=== PATIENT | male | born 1965 | race Caucasian/White ===

== ENCOUNTER 2020-10-18 21:52 | Inpatient (IN) | payer MEDICAID ==
[~2020-10-18] VITALS: Ht 177.8 cm; Wt 89.8 kg
[~2020-10-18 21:52] MED LIST: ALBU6.7H9 INH; APIX5TAB PO; AZIT500T8 MT; DEX2 MT; DIVA500T3 PO; FLOV44 INH; FLUT1DIS3 INH; LIP40 MT; METF-873 PO; METO-385 PO; SYN175 PO
[2020-10-18] MEDS ORDERED: ASPIRIN 81MG TABLET PO ONE (22:30)
[2020-10-18 23:13] LABS: BASOPHILS % 0.9 % (0.0-2.0); EOSINOPHILS % 1.2 % (0.0-5.0); HEMATOCRIT. 42.9 % (42.0-52.0); HEMOGLOBIN. 14.7 g/dL (14.0-18.0); LYMPHOCYTES % 24.6 % (20.0-50.0); MEAN CORPUSCULAR HEMOGLOBIN 29.9 pg (28.0-32.0); MEAN CORPUSCULAR VOLUME 87.5 fL (80.0-94.0); MEAN PLATELET VOLUME 8.9 fl (7.4-10.4); MONOCYTES % 12.4 % (2.0-8.0); NEUTROPHILS % 60.9 % (40.0-76.0); PLATELET 226 x1000/uL (130-400); RED BLOOD CELL COUNT 4.91 mill/uL (4.7-6.1); RED CELL DISTRIBUTION WIDTH 14.6 % (11.6-14.6)
[2020-10-18 23:19] LABS: CHLORIDE 103 mEq/L (98-107)
[2020-10-18] MEDS: NITROGLYCERIN 0.4MG TABLET SL SL PRN ×3 (23:20→23:34)
[2020-10-18 23:24] LABS: D-DIMER 0.3 mg/L FEU (<0.50); PARTIAL THROMBOPLASTIN TIME 27.7 sec (23.4-31.0); PROTHROMBIN TIME 10.3 sec (9.6-11.0)
[2020-10-18] MEDS ORDERED: CEFTRIAXONE 1 G PREMIX 50 ML IV ONE (23:30)
[2020-10-18] MEDS ORDERED: AZITHROMYCIN 500 MG in DEXT 5% WATER 250 ML IV ONE (23:30)
[2020-10-18] MEDS ORDERED: FUROSEMIDE 40MG/4ML VIAL IVP ONE (23:30)
[2020-10-18] MEDS ORDERED: ONDANSETRON HCL 4MG/2ML INJ IV STA (23:43)
[2020-10-18] MEDS ORDERED: MORPHINE SULFATE 4 MG/ML CPJ (NOT FOR IM USE) IV STA (23:43)
[2020-10-18] MEDS ORDERED: DEXAMETHASONE 10 MG/ML VIAL IV ONE (23:45)
[2020-10-19 04:43] LABS: CLARITY URINE CLEAR (CLEAR); COLOR URINE YELLOW (YELLOW); KETONES URINE NEGATIVE (NEGATIVE); LEUKOCYTE ESTERASE URINE NEGATIVE (NEGATIVE); NITRITE URINE NEGATIVE (NEGATIVE); OCCULT BLOOD URINE NEGATIVE (NEGATIVE); PROTEIN URINE NEGATIVE (NEGATIVE); SPECIFIC GRAVITY URINE 1.009 (1.005-1.030); UROBILINOGEN URINE 0.2 E.U./dL (0.2-1.0)
[2020-10-19] MEDS ORDERED: MORPHINE SULFATE 2 MG/ML CPJ (NOT FOR IM USE) IV PRN (05:15)
[2020-10-19] MEDS ORDERED: ALBUTEROL 6.7GM HFA INHALER ORI PRN (08:30)
[2020-10-19] MEDS ORDERED: ONDANSETRON HCL 4MG/2ML INJ IV PRN (08:30)
[2020-10-19 09:22] LABS: *AMPHETAMINES SCREEN URINE NEGATIVE (NEGATIVE); CANNABINOID URINE SCREEN NEGATIVE (NEGATIVE); PHENCYCLIDINE URINE SCREEN NEGATIVE (NEGATIVE)
[2020-10-19 09:23] LABS: *BARBITURATES SCREEN URINE NEGATIVE (NEGATIVE); *BENZODIAZEPINES SCREEN URINE NEGATIVE (NEGATIVE); *COCAINE SCREEN URINE NEGATIVE (NEGATIVE); METHADONE URINE SCREEN NEGATIVE (NEGATIVE); OPIATES URINE SCREEN PRESUMTIVE POSITIVE (NEGATIVE)
[2020-10-19] MEDS ORDERED: NALOXONE HCL 0.4MG/ML VIAL IV PRN (10:45)
[2020-10-19] MEDS: DIVALPROEX SODIUM 500MG DR TABLET PO SCH ×2 (11:04→21:05)
[2020-10-19] MEDS: HYDROCODONE/ACETAMINOPHEN 5/325MG TABLET PO PRN ×2 (11:04→21:05)
[2020-10-19] MEDS: APIXABAN 5 MG TABLET PO SCH ×2 (11:29→17:13)
[2020-10-19] MEDS: LEVOTHYROXINE SODIUM 175MCG TABLET PO SCH (11:29)
[2020-10-19] MEDS: METHYLPREDNISOLONE SOD SUCC 40 MG/ML VIAL IV SCH ×2 (11:29→18:56)
[2020-10-19 15:30] VITALS: BP 131/76
[2020-10-19 16:00] VITALS: BP 131/76
[2020-10-19 18:00] VITALS: BP 125/68
[2020-10-19 20:00] VITALS: BP 135/64
[2020-10-19] MEDS ORDERED: CEFTRIAXONE 1,000 MG in DEXTROSE 5% WATER 50 ML IV SCH ×2 (20:00→21:00)
[2020-10-19] MEDS ORDERED: DEXTROSE 50% WATER 50ML SYRINGE IV PRN (20:15)
[2020-10-19] MEDS ORDERED: AZITHROMYCIN 250 MG TABLET PO SCH ×2 (21:00)
[2020-10-19] MEDS: FAMOTIDINE 20MG TABLET PO SCH (21:05)
[2020-10-19] MEDS: BLOOD SUGAR DIAGNOSTIC STRIP TEST SCH (21:06)
[2020-10-19] MEDS: INSULIN LISPRO 100 UNITS/ML SUBCUT SCH (21:06)
[2020-10-20] VITALS: BP 127/63
[2020-10-20] MEDS: METHYLPREDNISOLONE SOD SUCC 125 MG/2 ML VIAL IV SCH ×5 (02:31→23:48)
[2020-10-20 04:00] VITALS: BP 143/80
[2020-10-20] MEDS: LEVOTHYROXINE SODIUM 175MCG TABLET PO SCH (06:11)
[2020-10-20] MEDS: INSULIN LISPRO 100 UNITS/ML SUBCUT SCH ×4 (06:12→20:12)
[2020-10-20] MEDS: BLOOD SUGAR DIAGNOSTIC STRIP TEST SCH ×4 (06:12→20:12)
[2020-10-20 08:00] VITALS: BP 135/80
[2020-10-20] MEDS: APIXABAN 5 MG TABLET PO SCH ×2 (09:51→17:17)
[2020-10-20] MEDS: DIVALPROEX SODIUM 500MG DR TABLET PO SCH ×2 (09:52→20:11)
[2020-10-20] MEDS: FUROSEMIDE 40MG/4ML VIAL IVP SCH (09:52)
[2020-10-20] MEDS: GUAIFENESIN 600MG ER TABLET PO SCH ×2 (09:52→20:11)
[2020-10-20 12:00] VITALS: BP 124/64
[2020-10-20] MEDS: HYDROCODONE/ACETAMINOPHEN 5/325MG TABLET PO PRN ×2 (15:08→23:49)
[2020-10-20 16:00] VITALS: BP 125/66
[2020-10-20 20:00] VITALS: BP 116/58
[2020-10-20] MEDS: FAMOTIDINE 20MG TABLET PO SCH (20:11)
[2020-10-21] VITALS (7 sets, daily range): BP systolic 109–124; BP diastolic 59–75
[2020-10-21] MEDS: METHYLPREDNISOLONE SOD SUCC 125 MG/2 ML VIAL IV SCH ×4 (05:18→23:49)
[2020-10-21] MEDS: BLOOD SUGAR DIAGNOSTIC STRIP TEST SCH ×4 (06:19→20:25)
[2020-10-21] MEDS: INSULIN LISPRO 100 UNITS/ML SUBCUT SCH ×4 (06:19→20:25)
[2020-10-21] MEDS: LEVOTHYROXINE SODIUM 175MCG TABLET PO SCH (06:19)
[2020-10-21] MEDS: FUROSEMIDE 40MG/4ML VIAL IVP SCH (08:33)
[2020-10-21] MEDS: DIVALPROEX SODIUM 500MG DR TABLET PO SCH ×2 (08:33→20:29)
[2020-10-21] MEDS: GUAIFENESIN 600MG ER TABLET PO SCH ×2 (08:33→20:24)
[2020-10-21] MEDS: APIXABAN 5 MG TABLET PO SCH ×2 (08:33→17:10)
[2020-10-21] MEDS: HYDROCODONE/ACETAMINOPHEN 5/325MG TABLET PO PRN ×3 (08:34→20:09)
[2020-10-21] MEDS: FAMOTIDINE 20MG TABLET PO SCH (20:24)
[2020-10-21] MEDS: IPRATROPIUM/ALBUTEROL 0.5-3(2.5)MG/3ML NEB HHN SCH (21:28)
[2020-10-22] VITALS (7 sets, daily range): BP systolic 105–141; BP diastolic 48–68
[2020-10-22] MEDS: IPRATROPIUM/ALBUTEROL 0.5-3(2.5)MG/3ML NEB HHN SCH ×6 (00:03→20:00)
[2020-10-22] MEDS: HYDROCODONE/ACETAMINOPHEN 5/325MG TABLET PO PRN ×3 (03:22→21:34)
[2020-10-22] MEDS: METHYLPREDNISOLONE SOD SUCC 125 MG/2 ML VIAL IV SCH ×2 (06:14→11:39)
[2020-10-22] MEDS: LEVOTHYROXINE SODIUM 175MCG TABLET PO SCH (06:14)
[2020-10-22] MEDS: INSULIN LISPRO 100 UNITS/ML SUBCUT SCH ×4 (06:16→21:41)
[2020-10-22] MEDS: BLOOD SUGAR DIAGNOSTIC STRIP TEST SCH ×4 (06:16→20:53)
[2020-10-22] MEDS: GUAIFENESIN 600MG ER TABLET PO SCH ×2 (08:31→21:33)
[2020-10-22] MEDS: DIVALPROEX SODIUM 500MG DR TABLET PO SCH ×2 (08:31→21:34)
[2020-10-22] MEDS: FUROSEMIDE 40MG/4ML VIAL IVP SCH (08:31)
[2020-10-22] MEDS: APIXABAN 5 MG TABLET PO SCH ×2 (08:31→17:23)
[2020-10-22] MEDS ORDERED: LEVO200T8 PO (16:08)
[2020-10-22] MEDS: METHYLPREDNISOLONE SOD SUCC 40 MG/ML VIAL IV SCH (17:23)
[2020-10-22] MEDS: FAMOTIDINE 20MG TABLET PO SCH (21:33)
[2020-10-23] MEDS: IPRATROPIUM/ALBUTEROL 0.5-3(2.5)MG/3ML NEB HHN SCH ×4 (04:00→12:30)
[2020-10-23 04:30] VITALS: BP 134/69
[2020-10-23] MEDS: LEVOTHYROXINE SODIUM 175MCG TABLET PO SCH (05:27)
[2020-10-23] MEDS: HYDROCODONE/ACETAMINOPHEN 5/325MG TABLET PO PRN (05:27)
[2020-10-23] MEDS: BLOOD SUGAR DIAGNOSTIC STRIP TEST SCH ×2 (05:30→12:10)
[2020-10-23] MEDS: INSULIN LISPRO 100 UNITS/ML SUBCUT SCH ×2 (05:36→12:40)
[2020-10-23 08:00] VITALS: BP 130/73
[2020-10-23] MEDS ORDERED: P20 MT (09:33)
[2020-10-23] MEDS: METHYLPREDNISOLONE SOD SUCC 40 MG/ML VIAL IV SCH (10:57)
[2020-10-23] MEDS: DIVALPROEX SODIUM 500MG DR TABLET PO SCH (10:57)
[2020-10-23] MEDS: FUROSEMIDE 40MG/4ML VIAL IVP SCH (10:57)
[2020-10-23] MEDS: APIXABAN 5 MG TABLET PO SCH (10:57)
[2020-10-23] MEDS: GUAIFENESIN 600MG ER TABLET PO SCH (10:57)
[2020-10-23] MEDS ORDERED: FAMO-135 MT (11:01)
[2020-10-23 12:00] VITALS: BP 128/68
[2020-10-23 15:18] VITALS: BP 130/73
== END 2020-10-23 15:44 | disposition home or self-care (01) | DRG 140 ==
LOC: ER 21:52 → MICUSO 10-19 03:06 → 8WST 10-19 14:09
PROVIDERS: ADMIT Internal Medicine; ATTEND Internal Medicine
PROC: 5A09457 Assistance with Respiratory Ventilation, 24-96 Consecutive Hours, Continuous Positive Airway Pressure (ICD-10-PCS; principal; 2020-10-19)
PROC: 5A09357 Assistance with Respiratory Ventilation, Less than 24 Consecutive Hours, Continuous Positive Airway Pressure (ICD-10-PCS; 2020-10-21)
PROC: 5A09357 Assistance with Respiratory Ventilation, Less than 24 Consecutive Hours, Continuous Positive Airway Pressure (ICD-10-PCS; 2020-10-22)
DX: J44.1 Chronic obstructive pulmonary disease with (acute) exacerbation (principal); J96.20 Acute and chronic respiratory failure, unspecified whether with hypoxia or hypercapnia; I50.31 Acute diastolic (congestive) heart failure; D68.51 Activated protein C resistance; I11.0 Hypertensive heart disease with heart failure; E11.9 Type 2 diabetes mellitus without complications; Z20.822 Contact with and (suspected) exposure to COVID-19; E03.9 Hypothyroidism, unspecified; E05.90 Thyrotoxicosis, unspecified without thyrotoxic crisis or storm; E66.9 Obesity, unspecified; G47.33 Obstructive sleep apnea (adult) (pediatric); K76.0 Fatty (change of) liver, not elsewhere classified; Z85.068 Personal history of other malignant neoplasm of small intestine; Z79.01 Long term (current) use of anticoagulants; Z95.828 Presence of other vascular implants and grafts; Z88.8 Allergy status to other drugs, medicaments and biological substances; Z79.2 Long term (current) use of antibiotics; Z79.899 Other long term (current) drug therapy; Z88.1 Allergy status to other antibiotic agents; Z86.718 Personal history of other venous thrombosis and embolism; Z68.28 Body mass index [BMI] 28.0-28.9, adult; Z86.711 Personal history of pulmonary embolism
CPT/HCPCS: 36415; 71045; 71250; 74176; 78582; 80053; 80305; 81003; 82962; 83036; 83605; 83880; 84484; 85025; 85379; 92610; 92950; 93005; 93306; 93970; 94640; 94660; 97162; 97166; 99285; A9558; J0456; J0696; J1100; J1815; J1940; J2270; J2405; J2920; J2930; J7060; U0003; U0005